=== PATIENT | female | born 1940 | race Caucasian/White ===

== ENCOUNTER 2018-12-10 10:46 | Emergency (ER) | payer MEDICARE, OTHER ==
[2018-12-10 11:27] VITALS: BP 179/91; PULSE 77
--- NOTE | 2018-12-10 11:27 | EDM.PDOC ---
ED HPI GENERAL MEDICAL PROBLEM - General Chief Complaint: Head Injury Stated Complaint: HEAD INJURY Time Seen by Provider: 12/10/18 11:20 Source of Information: Reports: Patient, RN, RN Notes Reviewed History Limitations: Reports: No Limitations - History of Present Illness INITIAL COMMENTS - FREE TEXT/NARRATIVE: Pt to ER with c/o hitting her head. Patient states she tripped and fell on cement steps hitting her head and face on the step. Patient denies losing consciousness. Denies N/V, visual disturbance. Admits to mild dizziness with sitting up. This occurred at 0930 today. Patient has laceration above right eye , on the lateral side of eyebrow, skin tear to top of right hand, bruising on the ventral aspect of right index, middle, and ring fingers. Large hematoma to right side of forehead with ecchymosis. Onset: Today, Sudden Location: Reports: Head, Face Upper Head Pain Score (Numeric/FACES): 7 - Related Data Allergies Allergy/AdvReac Type Severity Reaction Status Date / Time No Known Allergies Allergy Verified 12/10/18 10:59 Home Meds: Home Meds Cholecalciferol (Vitamin D3) [Vitamin D] 2 tab PO DAILY 02/21/14 [History] Losartan/Hydrochlorothiazide [Hyzaar 100-12.5 Tablet] 1 tab PO DAILY 02/21/14 [ History] ED ROS GENERAL - Review of Systems Review Of Systems: ROS reveals no pertinent complaints other than HPI. ED EXAM, HEAD INJURY - Physical Exam Exam: See Below Exam Limited By: No Limitations General Appearance: Alert, WD/WN, No Apparent Distress Head: Scalp Abrasions Nexus Criteria: No: Posterior, Midline Cervical Tenderness, Evidence of Intoxication, Altered Level of Consciousness, Focal Neurological Deficit, Painful Distraction Injuries Eyes: Bilateral Eye: EOMI, Normal Inspection, PERRL (2 brisk) Ears: Normal External Exam, Hearing Grossly Normal Nose: Normal Inspection, Normal Mucousa, No Blood Throat/Mouth: Normal Inspection, Normal Lips, Normal Teeth, Normal Gums, Normal Oropharynx, Normal Voice, No Airway Compromise Neck: Non-Tender, Full Range of Motion, Normal Alignment, Normal Inspection Respiratory: No Respiratory Distress, Lungs Clear, Normal Breath Sounds, No Accessory Muscle Use, Chest Non-Tender Cardiovascular: Normal Peripheral Pulses, Regular Rate, Rhythm, No Edema, No Gallop, No JVD, No Murmur, No Rub GI/Abdominal Exam: Normal Bowel Sounds, Soft, Non-Tender (Female) Exam: Deferred Rectal (Female) Exam: Deferred Back Exam: Full Range of Motion, Normal Inspection, NT Extremities: Normal Inspection, Normal Range of Motion, Non-Tender, No Pedal Edema, Normal Capillary Refill Neurologic: No Motor/Sensory Deficits, Alert, Normal Mood/Affect, Oriented x 3 Skin: Normal Color, Warm/Dry, Ecchymosis, Other (large hematoma to the right side of the forehead, 1.5cm laceration to right eyebrow, skin tear to the dorsal right hand, ecchymosis to the ventral side of index, middle, and ring fingers on the right hand. Abrasion to the left knee. ) - Justin Coma Score Best Eye Response ([place]): (4) Open Spontaneously Best Verbal Response ([place]): (5) Oriented Best Motor Response ([place]): (6) Obeys Commands ED LACERATION/WOUND & DAGO PROC - Laceration/Wound Repair Right Side Brow Lac/wound length in cm: 1.5 Appearance: Superficial Distal NVT: Neuro & Vascular Intact Skin Prep: Chlorhexidine (Hibiciens) Exploration/Debridement/Repair: Wound Explored, In a Bloodless Field, No Foreign Material Found Closed with: Dermabond Drain Placement: No Tetanus Status Addressed: Yes Complications: No Course - Vital Signs Last Recorded V/S: Last Vital Signs Temp 97 F 12/10/18 10:57 Pulse 77 12/10/18 10:57 Resp 16 12/10/18 10:57 BP 179/91 H 12/10/18 10:57 Pulse Ox 100 12/10/18 10:57 - Radiology Interpretation Free Text/Narrative:: Head CT: Extracranial scalp hematoma. No sign of skull fracture or closed head injury. Microvascular ischemic changes. See rad report Departure - Departure Time of Disposition: 12:32 Disposition: Home, Self-Care 01 Condition: Fair Clinical Impression: Concussion with no loss of consciousness, Hematoma, Laceration Head injury Qualifiers: Encounter type: initial encounter Qualified Code(s): S09.90XA - Unspecified injury of head, initial encounter - Discharge Information *PRESCRIPTION DRUG MONITORING PROGRAM REVIEWED*: No *COPY OF PRESCRIPTION DRUG MONITORING REPORT IN PATIENT ANUSHA: No Instructions: Post-Concussion Syndrome, [id number], Facial or Scalp Contusion , [id number], Head Injury, Adult, [id number], Laceration Care, Adult, Easy- to-Read, Stitches, Jade, or Adhesive Wound Closure, [id number], Hematoma, [id number] Referrals: Maryjane Velez [Primary Care Provider] - Forms: ED Department Discharge Additional Instructions: Continue to ice the area as tolerated May use Tylenol as directed for pain Let glue fall off on its own, do not pick Follow up with your primary care facility Return to the ER with any further problems
--- NOTE | 2018-12-10 11:54 | CT ---
Clinical history: 78-year-old female injured, hit head, in a fall (loss of consciousness). Scan technique: Volume acquisition of data emergency unenhanced CT scan of the head and brain obtained with the patient lying supine on the Siemens multi slice scanner [place], [place]. All data archived in the PACS system for storage, reformatting axial/sagittal/coronal planes and study. Interpretation: Abnormal. *Asymmetric large extracranial subcutaneous hematoma frontal frontal region on the right. No underlying fractures. Uniformly thick bony calvarium without sign of fracture, underlying or contrecoup brain contusion. No intracranial extracerebral bleed i.e. no sign of subdural or epidural hematoma. No basal skull fracture. Normal TM joints Atrophy with underlying mirror-image normal ventricular system (cavum septum lucidum). No supratentorial or posterior fossa mass lesion. Cerebellum and brainstem unremarkable. Microvascular ischemic changes involving the external capsules of both cerebral hemispheres (L>R). Ethmoiditis on the right. Otherwise symmetric clear pneumatization paranasal and mastoid sinuses. CONCLUSION: Extracranial scalp hematoma. No sign of skull fracture or closed head injury. Microvascular ischemic changes.
== END 2018-12-10 12:31 | disposition home or self-care (01) ==
LOC: DL.ED 10:46
DX: S06.0X0A Concussion without loss of consciousness, initial encounter (principal); S01.111A Laceration without foreign body of right eyelid and periocular area, initial encounter; S61.411A Laceration without foreign body of right hand, initial encounter; S60.021A Contusion of right index finger without damage to nail, initial encounter; S60.031A Contusion of right middle finger without damage to nail, initial encounter; S60.041A Contusion of right ring finger without damage to nail, initial encounter; S80.212A Abrasion, left knee, initial encounter; W01.198A Fall on same level from slipping, tripping and stumbling with subsequent striking against other object, initial encounter
CPT/HCPCS: 12011; 70450; 99283; 99283-25